=== PATIENT | male | born 1930 | race Caucasian/White ===

== ENCOUNTER 2018-05-31 12:10 | Outpatient (CLI) | payer OTHER ==
[2018-05-31 13:14] LABS: ANION GAP 7 (5-15); CHLORIDE 106 mmol/L (98-107); CREATININE 1.33 mg/dL (0.55-1.30); GLUCOSE 92 mg/dL (70-99); POTASSIUM 4.2 mmol/L (3.5-5.1); SODIUM SERUM 138 mmol/L (136-145); UREA NITROGEN, BLOOD 31 mg/dL (8-21)
== END 2018-06-01 07:57 | disposition home or self-care (01) ==
LOC: SLB 12:10
DX: N19 Unspecified kidney failure (principal)
CPT/HCPCS: 36415; 80048